=== PATIENT | female | born 1985 | race Caucasian/White ===

== ENCOUNTER → 2017-10-28 | Day surgery (SDC) | payer OTHER ==
[~2017-10-28] VITALS: Ht 165.1 cm; Wt 70.8 kg
[~2017-10-28] MED LIST: *MEPERIDINE 25 MG INJ VIAL PERIprocedural Use ONLY ONE; *morphine SULFATE 4 MG/ML PERIprocedure ONLY ONE; ACETAMINOPHEN 1000 MG/100 ML 100 ML IV SCH; BUPIVACAINE LIPOSOME PF 1.3% 20 ML VIAL ONE; BUPIVACAINE/EPINEPHRINE 0.5% PF 30 ML VIAL ONE; CETI-1 PO; CHLORHEXIDINE GLUCONATE 2 % 1 PACK (2 CLOTHS) TOPICAL PRN; CITA20TA4 PO; DEXAMETHASONE SOD PHOS 4 MG/ML VIAL IV ONE; DO NOT ADM ANY ANTICOAGULANT DRUGS PRN; FAMOTIDINE 20 MG/2 ML VIAL ONE; FAT EMULSION 20% INJ 0 ML ONE; KETOROLAC TROMETHAMINE 30 MG/ML (IVP) VIAL IV PUSH ONE; KETOROLAC TROMETHAMINE 30 MG/ML (IVP) VIAL ONE; LACTATED RINGER'S 1000 ML IV PRN; LIDOCAINE HCL 1% PF 5 ML SYRINGE OTHER ONE; METOPROLOL TARTRATE 25 MG TAB PO PRN; MIDAZOLAM HCL 5 MG/5 ML VIAL ONE; MORPHINE SULFATE 2 MG/ML SYRINGE IV PRN; MORPHINE SULFATE 4 MG/ML INJ IV PRN; MORPHINE SULFATE 4 MG/ML INJ IV PUSH PRN; NORMOSOL R INJ 1,000 ML IV ONE; ONDANSETRON HCL 4 MG/2 ML VIAL IV ONE; ONDANSETRON HCL 4 MG/2 ML VIAL IV PUSH PRN; ORSYTAB PO; POVIDONE IODINE 5% (ANTISEPSIS KIT) 4 APPLICATIONS EACH NARE PRN; PROPOFOL 200 MG/20 ML AMP IV ONE; ROCURONIUM INJ 50 MG/5 ML SYRINGE IV PUSH ONE; SODIUM CHLORID 0.9% 500 ML IV PRN; SUCCINYLCHOLINE CHLORIDE 100 MG/5 ML SYRINGE IV PUSH ONE; SUGAMMADEX SODIUM 200 MG/2 ML VIAL IV PUSH ONE; VANCOMYCIN 1,000 MG/NS 250ML (for <70 kg) IV SCH; oxyCODONE/ACETAMINOPHEN 5 MG/325 MG TAB PO PRN
[2017-10-28 06:12] VITALS: PULSE 70
--- NOTE | 2017-10-28 09:16 | PD.OP ---
cc: Anthony Suarez MD Operative Report Date of Surgery: Oct 28, 2017 Preoperative Diagnosis: (1) Ventral hernia Postoperative Diagnosis: (1) Ventral hernia Procedure: Laparoscopic ventral hernia repair with mesh Anesthesia: General Surgeon: Anthony Suarez Insole Presser(s): Tiffanie ANTOINE Operation and Findings: EBL: 20 cc Operative findings: Transverse 1-2 cm fascial defect approximately 2 cm superior to umbilicus. 4.5" ventralight St on ECHO deployment system placed. Procedure in detail: The patient was taken to the operating room and placed in supine position. Gen. endotracheal anesthesia was induced. The abdomen was prepped and draped in usual sterile fashion and a surgical timeout was performed to verify correct patient procedure and site. Appropriate perioperative antibiotics were administered. Preoperatively the patient received a tap block. In the left upper abdomen a 10 mm incision was made after infiltration with local anesthetic. Blunt dissection was carried out to the underlying fascia which was visualized and sharply incised. The peritoneum was visualized, grasped, and elevated and then sharply cut with Metzenbaum scissors. The GelPort 10 mm balloon trocar was inserted. The abdomen was insufflated to 15 mmHg which the patient tolerated well. A 5 mm port balloon was placed in the left lower abdomen, right lower abdomen, and right upper abdomen all under laparoscopic visualization and after infiltration with local anesthetic.. Attention was turned to the mid abdomen. There was a fascial defect superior to the umbilicus with incarcerated preperitoneal fat. Peritoneum surrounding the hernia was incised with Harmonic scalpel and fatty tissue removed from approximately the umbilicus, laterally to the edge of the rectus muscles and superiorly including a portion of the falciform ligament. Preperitoneal fat was reduced from the hernia defect as well as the hernia sac itself. The estimated size of the hernia defect is 1-2cm transversely oriented. A 4.5" piece of ventral light ST mesh on the echo deployment system was chosen. The mesh was saturated with saline, rolled, and placed through the 10 mm port into the abdomen. Local anesthetic was injected just superior to the hernia and a small skin jese created. The InRadio suture passer was used to enter the abdomen and grasp the blue catheter which was brought out of the abdomen. The syringe was placed on the catheter and the deployment system inflated with air. The catheter was brought up to the anterior abdominal wall. Next, the Secure Strap tacker was used to place tacks at 4 corners of the deployment device. The green skeleton of the device was then removed. Tacks were placed circumferentially around the mesh as well as throughout the midportion of the mesh. It was taut against the abdominal wall with wide coverage of the hernia defect. At this point the abdomen was allowed to desufflate and trochars were removed. The fascia of the left upper quadrant incision was closed in 2 layers with 0 Vicryl suture. The skin was closed with subcuticular 4-0 Monocryl suture as well as Dermabond. An abdominal binder was placed. The patient tolerated the procedure well was extubated and taken to PACU in stable condition. Anthony Suarez MD Oct 28, 2017 09:16
[2017-10-28 11:00] VITALS: BP 125/71; PULSE 80; RESP 16; TEMP 98.1; O2SAT 95
--- NOTE | 2017-10-28 13:39 | EKG ---
Date Performed: 10/28/2017 Time Performed: 06:31:24 PTAGE: 32 years EKG: Sinus rhythm BORDERLINE LEFT AXIS DEVIATION MODERATE VOLTAGE CRITERIA FOR LVH, CONSIDER NORMAL VARIANT BORDERLINE ECG NO PREVIOUS TRACING DOCTOR: Palomo Davidson Interpretating Date/Time 10/28/2017 13:36:50
== END | disposition home or self-care (01) ==
LOC: HSDC 05:39
PROVIDERS: ATTEND Surgery
DX: K43.9 Ventral hernia without obstruction or gangrene (principal); R94.31 Abnormal electrocardiogram [ECG] [EKG]
CPT/HCPCS: 00752; 49653; 93005; C1781; C9290; J0131; J0330; J1100; J1885; J2175; J2250; J2270; J2405; J3010; J3370; J7120

== ENCOUNTER 2017-11-04 23:45 | Emergency (ER) | payer OTHER ==
[~2017-11-04] VITALS: Ht 165.1 cm; Wt 71.0 kg
[~2017-11-04 23:45] MED LIST changes: -*MEPERIDINE 25 MG INJ VIAL PERIprocedural Use ONLY ONE; -*morphine SULFATE 4 MG/ML PERIprocedure ONLY ONE; -ACETAMINOPHEN 1000 MG/100 ML 100 ML IV SCH; -BUPIVACAINE LIPOSOME PF 1.3% 20 ML VIAL ONE; -BUPIVACAINE/EPINEPHRINE 0.5% PF 30 ML VIAL ONE; -CHLORHEXIDINE GLUCONATE 2 % 1 PACK (2 CLOTHS) TOPICAL PRN; -DEXAMETHASONE SOD PHOS 4 MG/ML VIAL IV ONE; -DO NOT ADM ANY ANTICOAGULANT DRUGS PRN; -FAMOTIDINE 20 MG/2 ML VIAL ONE; -FAT EMULSION 20% INJ 0 ML ONE; -KETOROLAC TROMETHAMINE 30 MG/ML (IVP) VIAL IV PUSH ONE; -KETOROLAC TROMETHAMINE 30 MG/ML (IVP) VIAL ONE; -LACTATED RINGER'S 1000 ML IV PRN; -LIDOCAINE HCL 1% PF 5 ML SYRINGE OTHER ONE; -METOPROLOL TARTRATE 25 MG TAB PO PRN; -MIDAZOLAM HCL 5 MG/5 ML VIAL ONE; -MORPHINE SULFATE 2 MG/ML SYRINGE IV PRN; -MORPHINE SULFATE 4 MG/ML INJ IV PRN; -MORPHINE SULFATE 4 MG/ML INJ IV PUSH PRN; -NORMOSOL R INJ 1,000 ML IV ONE; -ONDANSETRON HCL 4 MG/2 ML VIAL IV ONE; -ONDANSETRON HCL 4 MG/2 ML VIAL IV PUSH PRN; -POVIDONE IODINE 5% (ANTISEPSIS KIT) 4 APPLICATIONS EACH NARE PRN; -PROPOFOL 200 MG/20 ML AMP IV ONE; -ROCURONIUM INJ 50 MG/5 ML SYRINGE IV PUSH ONE; -SODIUM CHLORID 0.9% 500 ML IV PRN; -SUCCINYLCHOLINE CHLORIDE 100 MG/5 ML SYRINGE IV PUSH ONE; -SUGAMMADEX SODIUM 200 MG/2 ML VIAL IV PUSH ONE; -VANCOMYCIN 1,000 MG/NS 250ML (for <70 kg) IV SCH; -oxyCODONE/ACETAMINOPHEN 5 MG/325 MG TAB PO PRN
[2017-11-04 23:55] VITALS: BP 104/52; PULSE 82; RESP 16; TEMP 98.6
[2017-11-05] MEDS ORDERED: predniSONE 20 MG TAB PO ONE (00:30)
[2017-11-05] MEDS ORDERED: diphenhydrAMINE HCL 25 MG CAP PO ONE (00:30)
[2017-11-05] MEDS ORDERED: FAMOTIDINE 20 MG TAB PO ONE (00:45)
--- NOTE | 2017-11-05 01:36 | PD ---
HPI Chief Complaint: Allergic/Adverse Reaction Time Seen by Provider: 00:14 Travel History International Travel<30 days: No Contact w/Intl Traveler<30days: No Traveled to known affect area: No History of Present Illness HPI Patient is wearing a support plastic belt around her waist for the last 2 weeks now she has developed a rash along the area where the belt contacts her skin she has hives all over her lower back and now they have spread into her trunk extensor surface of her arms and her legs and her back she took Benadryl at 7: 00 which is not helping. She has had allergic reactions in the past. The only thing that she can identify is this new elastic waist belt for support PFSH Past Medical History Asthma: Yes Cancer: No Cardiovascular Problems: Yes (mitral valve prolapse) Diabetes: No Endocrine: No Genitourinary: No Immune Disorder: No Musculoskeletal: No Neurologic: No Reproductive: No Thyroid Disease: No Tetanus Vaccination: Unknown Influenza Vaccination: Yes ?: Not LMP: 10/24/17 Past Surgical History Abdominal Surgery: Yes (umbilical hernia repair) Body Medical Devices: NONE Other Surgery: Yes Social History Alcohol Use: No Tobacco Use: No Substance Use: No Allergies-Medications (Allergen,Severity, Reaction): Coded Allergies: Sulfa (Sulfonamide Antibiotics) (Unverified Allergy, Severe, HIVES, ) penicillin G (Unverified Allergy, Severe, HIVES, 02/16/17) Reported Meds & Prescriptions Reported Meds & Active Scripts Active Diphenhydramine (Diphenhydramine HCl) 25 Mg Cap 25 Mg PO Q6H PRN Pepcid (Famotidine) 20 Mg Tab 20 Mg PO BID Prednisone 50 Mg Tab 50 Mg PO DAILY Reported Zyrtec (Cetirizine HCl) 10 Mg Tablet 1 Tab PO DAILY Orsythia (Levonorgestrel-Ethinyl Estradiol) 0.1-20 mg-mcg Tab 1 Tab PO DAILY Citalopram (Citalopram Hydrobromide) 20 Mg Tab 20 Mg PO DAILY Review of Systems Except as stated in HPI: all other systems reviewed are Neg Physical Exam Narrative GENERAL: SKIN: Warm and dry. Patient has hive raised plaques on her forearm well- circumscribed sparing the palms and soles it is a macular papule but discrete edged circular rashes diffuse on lower back mostly along the edges of the belt that she had been wearing HEAD: Atraumatic. Normocephalic. EYES: Pupils equal and round. No scleral icterus. No injection or drainage. ENT: No nasal bleeding or discharge. Mucous membranes pink and moist. Anterior pharynx is open uvula is normal there is no swelling of tongue no stridor NECK: Trachea midline. No JVD. No stridor auscultated at the neck CARDIOVASCULAR: Regular rate and rhythm. RESPIRATORY: No accessory muscle use. Clear to auscultation. Breath sounds equal bilaterally. Lungs are clear to auscultation no wheeze GASTROINTESTINAL: Abdomen soft, non-tender, nondistended. Hepatic and splenic margins not palpable. MUSCULOSKELETAL: Extremities without clubbing, cyanosis, or edema. No obvious deformities. NEUROLOGICAL: Awake and alert. No obvious cranial nerve deficits. Motor grossly within normal limits. Five out of 5 muscle strength in the arms and legs. Normal speech. PSYCHIATRIC: Appropriate mood and affect; insight and judgment normal. Data Data Last Documented VS Vital Signs Date Time Temp Pulse Resp B/P (MAP) Pulse Ox O2 Delivery O2 Flow Rate FiO2 11/05/17 02:38 11/04/17 23:55 98.6 82 16 Room Air Orders Orders Diphenhydramine (Benadryl) (11/05/17 00:30) Prednisone (Deltasone) (11/05/17 00:30) Famotidine (Pepcid) (11/05/17 00:45) Ed Discharge Order (11/05/17 02:24) [facility] Medical Decision Making Medical Screen Exam Complete: Yes Emergency Medical Condition: Yes Differential Diagnosis Allergic reaction versus Thompson-Scott versus TENS versus atopic contact dermatitis Narrative Course Prednisone Benadryl Pepcid patient feels better still has some hives but will take time for the prednisone to immune suppression of hives to go away Diagnosis Primary Impression: Allergic reaction Qualified Codes: T78.40XA - Allergy, unspecified, initial encounter Patient Instructions: General Allergic Reaction (ED), General Instructions Scripts Diphenhydramine (Diphenhydramine) 25 Mg Cap 25 MG PO Q6H Y for ALLERGIES, #20 CAP 0 Refills Prov: Anthony Kline MD 11/05/17 Famotidine (Pepcid) 20 Mg Tab 20 MG PO BID, #30 TAB 0 Refills Prov: Anthony Kline MD 11/05/17 Prednisone (Prednisone) 50 Mg Tab 50 MG PO DAILY, #5 TAB 0 Refills Prov: Anthony Kline MD 11/05/17 Anthony Kline MD November 05, 2017 01:36
[2017-11-05] MEDS ORDERED: DIPH25CA PO (02:28)
[2017-11-05] MEDS ORDERED: FAMO1TAB37 PO (02:28)
[2017-11-05] MEDS ORDERED: PRED50 PO (02:28)
== END 2017-11-05 02:44 | disposition home or self-care (01) ==
LOC: NEPC 23:45
DX: L50.0 Allergic urticaria (principal); J45.909 Unspecified asthma, uncomplicated; I34.1 Nonrheumatic mitral (valve) prolapse; Z79.899 Other long term (current) drug therapy; Z88.2 Allergy status to sulfonamides; Z88.0 Allergy status to penicillin
CPT/HCPCS: 99282; J7512